=== PATIENT | male | born 1945 | race Caucasian/White ===

== ENCOUNTER 2020-02-22 09:44 | Outpatient (CLI) | payer MEDICARE, SELFPAY ==
[2020-02-22 11:24] LABS: SARS-CoV-2 Ag Negative (Negative)
== END 2020-02-22 09:45 | disposition home or self-care (01) ==
PROVIDERS: PCP Family Medicine; Visit Provider Family Medicine
DX: Z20.828 Contact with and (suspected) exposure to other viral communicable diseases (principal)
CPT/HCPCS: 87426

== ENCOUNTER 2020-02-29 11:22 | Outpatient (CLI) | payer MEDICARE, SELFPAY ==
--- NOTE | ~2020-02-29 | XR_ITS ---
EXAMINATION: XR chest 2V DATE: 02/29/2020 11:39 INDICATION: Chest pain. TECHNIQUE: Frontal and lateral views of the chest were obtained. COMPARISON: Chest single view 11/29/2018 FINDINGS: A calcified right lung nodule is consistent with old granulomatous disease. No pleural effu edwin or pneumothorax. The heart size is normal. IMPRESSION: 1. No acute cardiopulmonary disease. Reviewed, dictated and finalized at location A. STANT FARM OPERATIONS MANAGER
[2020-02-29 11:37] LABS: Basophils Absolute Auto 0.04 K/mm3 (0.00-0.10); Basophils Percent Auto 0.8 % (0.0-1.0); Eosinophils Absolute Auto 0.21 K/mm3 (0.02-0.50); Hemoglobin 13.8 g/dL (12.4-15.3); Immature Granulocyte Absolute 0.02 K/mm3 (0.00-0.00); Immature Granulocyte Percent A 0.4 % (0.0-0.0); Lymphocytes Absolute Auto 1.51 K/mm3 (1.10-4.50); Lymphocytes Percent Auto 28.8 % (18.0-42.0); Mean Corpuscular HGB Conc 32.9 g/dL (32.0-36.0); Mean Corpuscular Volume 97.4 fL (78.0-102.0); Mean Platelet Volume 9.3 fl (8.7-11.0); Monocytes Percent Auto 11.4 % (2.0-11.0); Neutrophils Absolute Auto 2.9 K/mm3 (1.7-7.2); Neutrophils Percent Auto 54.6 % (50.0-70.0); Platelet Count Result 190 K/mm3 (150-420); Red Blood Count 4.31 M/mm3 (4.70-6.10); Red Cell Distribution Width 12.1 % (11.6-14.4); White Blood Count 5.3 K/mm3 (4.8-10.8)
[2020-02-29 12:55] LABS: Alanine Aminotransferase 17 U/L (16-63); Albumin Level 3.6 g/dL (3.4-5.0); Alkaline Phosphatase 85 U/L (46-116); Anion Gap 7 mmol/L (8-16); Aspartate Amino Transferase 10 U/L (15-37); Bilirubin,Total 0.4 mg/dL (0.00-1.00); Blood Urea Nitrogen 24 mg/dL (7-18); Calcium 8.6 mg/dL (8.5-10.1); Carbon Dioxide 28 mmol/L (21-32); Chloride 106 mmol/L (98-108); Creatine Kinase 83 U/L (39-308); Estimated Glomerular Filt Rate 55; Glucose 91 mg/dL (70-99); Osmolality Calculated 296 mOsm/kg (285-295); Potassium 4.8 mmol/L (3.5-5.1); Sodium 141 mmol/L (136-145); Total Protein 7.1 g/dL (6.4-8.2)
[2020-02-29 12:56] LABS: Troponin I < 0.02 ng/mL (0.00-0.056)
== END 2020-02-29 11:23 | disposition home or self-care (01) ==
LOC: CHSLAB 11:23
PROVIDERS: PCP Family Medicine; Visit Provider Family Medicine
DX: R07.9 Chest pain, unspecified (principal)
CPT/HCPCS: 36415; 71046; 80053; 82550; 82553; 84484; 85025

== ENCOUNTER 2020-03-04 10:45 | Outpatient (CLI) | payer MEDICARE, SELFPAY ==
--- NOTE | 2020-03-04 12:00 | EST_ITS ---
Patient Info Name: Santo Abreu Age: 74 years : 1945 Gender: Male Ht: 72 in Wt: 213 lbs BSA: 2.23 m2 HR: 62 bpm BP: 133 / 77 mmHg Heart Rhythm: Sinus Rhythm Technical Quality: Excellent Exam Date: 03/04/2020 11:47 AM Exam Location: [facility] Patient Status: Outpatient Admit Date: 03/04/2020 Staff Ordering Physician: Roldan Arvizu MD Attending Provider: Roldan Arvizu MD Exercise Technologist: Asya Barlow CRT Exercise Physician: Amy Hoover CEP Exam Type: CA stress albert w NM Study Info Indications ChestPain - A nuclear stress test was performed. History/Risk Factors Renal Disease: No Congestive Heart Failure (CHF): No Diabetes Mellitus: No COPD: No Tobacco Use: Former Cerebrovascular Disease: No Deep Vein Thrombosis (DVT): None Dialysis: None History/Risk Factors Patient has no known cardiac history or risk factors. Cardiac Arrest: No Summary 1. 1. Negative Lexiscan stress test for ischemic ST changes by ECG criteria. 2. 2. Stable hemodynamics throughout the test. 3. 3. Nuclear scan to follow and will be reported separately. Please correlate with it. Protocol: LEXISCAN Stress ECG Details Stage: REST Duration (min): 1 min : 10 sec HR (bpm): 62 SBP (mmHg): 130 DBP (mmHg): 77 Stage: REST Duration (min): 13 min : 33 sec HR (bpm): 66 SBP (mmHg): 130 DBP (mmHg): 77 Stage: STAGE 1 Duration (min): 0 min : 8 sec HR (bpm): 64 SBP (mmHg): 130 DBP (mmHg): 77 Stage: RECOVERY Duration (min): 0 min : 52 sec HR (bpm): 88 SBP (mmHg): 130 DBP (mmHg): 77 Stage: RECOVERY Duration (min): 1 min : 52 sec HR (bpm): 88 SBP (mmHg): 131 DBP (mmHg): 72 Stage: RECOVERY Duration (min): 2 min : 52 sec HR (bpm): 89 SBP (mmHg): 136 DBP (mmHg): 72 Stage: RECOVERY Duration (min): 3 min : 52 sec HR (bpm): 81 SBP (mmHg): 131 DBP (mmHg): 67 Stage: RECOVERY Duration (min): 4 min : 52 sec HR (bpm): 84 SBP (mmHg): 135 DBP (mmHg): 68 Stage: RECOVERY Duration (min): 5 min : 52 sec HR (bpm): 83 SBP (mmHg): 130 DBP (mmHg): 72 Stage: RECOVERY Duration (min): 6 min : 1 sec HR (bpm): 77 SBP (mmHg): 130 DBP (mmHg): 72 Rest HR: 66 bpm Peak HR: 95 bpm Rest Sys BP: 130 mmHg Peak Sys BP: 136 mmHg Max Pred HR: 145 bpm % Max Pred HR: 66 % Target HR: 123 bpm Max RPP: 12,920 bpm*mmHg Termination Reason: Completion of Protocol Cardiac Symptoms: Dyspnea Total Time: 0 min : 8 sec Rest Davis BP: 77 mmHg Peak Davis BP: 72 mmHg Total Dose: 0.4 mg Resting ECG Normal sinus rhythm - normal ECG. Stress ECG No ST changes. Arrhythmias None. Report Signatures
== END 2020-03-04 10:46 | disposition home or self-care (01) ==
LOC: CHSIMG 10:46
PROVIDERS: PCP Family Medicine; Visit Provider Family Medicine
DX: R07.9 Chest pain, unspecified (principal)
CPT/HCPCS: 78452; 93017; A9502; J2785

== ENCOUNTER 2020-04-22 09:47 | Emergency (ER) | payer MEDICARE, SELFPAY ==
[2020-04-22] VITALS (16 sets, daily range): BP systolic 137–158; BP diastolic 79–94; PULSE 56–65; RESP 12–19; TEMP 36.4; O2SAT 96–100
--- NOTE | ~2020-04-22 | XR_ITS ---
EXAMINATION: XR chest 2V DATE: 04/22/2020 10:30 INDICATION: Chest pain. TECHNIQUE: Frontal and lateral views of the chest were obtained. COMPARISON: Chest 2 views 02/29/2020 FINDINGS: A calcified right lung nodule is consistent with old granulomatous disease. No pleural effu edwin or pneumothorax. The heart size is normal. IMPRESSION: 1. No acute cardiopulmonary disease. Reviewed, dictated and finalized at location A. P PILER
--- NOTE | 2020-04-22 09:55 | ED.CHESTPAIN ---
HPI - Chest Pain General Chief Complaint: Chest Pain Stated Complaint: Chest Pain Source: patient Mode of arrival: ambulatory Limitations: no limitations History of Present Illness HPI narrative: Patient had left chest discomfort last evening at midnight. He took some aspirin and then went to sleep and the pain went away. He had recurrence of the pain this morning and maybe some radiation down his left arm. He also states he may have imagined the radiation. He denies any nausea vomiting, shortness of breath, diaphoresis, worsening of the pain with exertion. He has a history of hiatal hernia many years ago and is not sure if he is having recurrence of that. He used to be on a PPI has not taken it many years. He did have some omeprazole at home and took 1 of those as well. MD complaint: chest discomfort Pertinent past history: other (Hiatal Hernia) Onset (ago): hour(s) (10) Timing of current episode: episodic Prior episodes: Yes Onset: during rest Pain location: left chest Pain radiation: left arm (Maybe?) Pain scale (0-10): 3 Quality: aching Relieving factors: medication-other (ASA) Exacerbating factors: nothing Treatment prior to arrival: aspirin Risk Factors Coronary artery disease risk factors: none Thoracic aortic dissection risk factors: none Related Data Home Medications Medication Instructions Recorded Confirmed finasteride 5 mg tablet 5 mg PO DAILY 04/18/20 04/22/20 fluticasone propionate 50 1 spray INTRANASAL DAILY 04/18/20 04/22/20 mcg/actuation nasal spray,suspension loratadine 10 mg capsule 10 mg PO DAILY 04/18/20 04/22/20 montelukast 10 mg tablet 10 mg PO DAILY 04/18/20 04/22/20 aspirin [Adult Aspirin] 81 mg PO DAILY 04/22/20 04/22/20 omeprazole magnesium [Acid Offensive Coordinator 20 mg PO DAILY 04/22/20 04/22/20 (omeprazole)] Allergies Allergy/AdvReac Type Severity Reaction Status Date / Time morphine AdvReac Severe NAUSEA Verified 01/23/16 09:25 VOMITING Review of Systems Review of Systems: All systems reviewed & are unremarkable except as noted in HPI and below Cardiovascular: Cardiovascular: Denies irregular heart rhythm, Denies leg edema and Denies dyspnea Gastrointestinal: Gastrointestinal: Denies nausea and Denies vomiting [facility] Past Medical History Medical History Chest pain Chronic rhinitis Elevated prostate specific antigen (PSA) Hemorrhoids Localized edema 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, including shoulder Pain in right leg Pain in shoulder Primary insomnia Surgical History Surgical History History of colonoscopy Social History Social History Smoking status: Former smoker Exam Const: General: cooperative, healthy appearing, comfortable, no acute distress, well developed, alert and awake Nutritional Appearance: average body habitus and well nourished Orientation/consciousness: patient oriented x3 HENMT: Head: normal to inspection Ears: external ears normal General nose exam: Normal external nose present Eyes: General: appearance normal, both eyes and all related structures Neck: Neck: normal visual inspection, full ROM and trachea midline Chest: Chest palpation & inspection: normal inspection of the chest Resp: Effort & Inspection: normal respiratory effort and able to speak in complete sentences Auscultation: clear to auscultation bilaterally Cardio: Rate: regular rate Rhythm: regular rhythm Heart sounds: no murmurs GI: Inspection: normal to inspection GI Palp: Yes Soft to palpation, No Tenderness to palpation present (GI) and No Guarding due to palpation present (GI) Auscultation: normal bowel sounds Back/Spine/Pelvis: Cervical Spine: cervical ROM normal Thoracic/Lumbar Spine: thoraco-lumbar ROM normal Skin: General skin exam: normal color, no rashes or lesions noted and tu
--- NOTE | 2020-04-22 09:56 | ECG_ITS ---
Measurements Intervals [place] Rate: 64 P: 48 NH: 175 QRS: 59 QRSD: 105 T: 64 QT: 408 QTc: 421 Interpretive Statements SINUS RHYTHM EARLY PRECORDIAL R/S TRANSITION BORDERLINE ECG Electronically Signed On 04-22-2020 10:29:54 CATERERS HELPER by Scott Peck D.O.
[2020-04-22 10:13] LABS: Basophils Absolute Auto 0.04 K/mm3 (0.00-0.10); Eosinophils Absolute Auto 0.28 K/mm3 (0.02-0.50); Eosinophils Percent Auto 6.9 % (1.0-6.0); Hematocrit 42.1 % (37.0-46.0); Hemoglobin 14.1 g/dL (12.4-15.3); Immature Granulocyte Absolute 0.01 K/mm3 (0.00-0.00); Immature Granulocyte Percent A 0.2 % (0.0-0.0); Lymphocytes Absolute Auto 1.31 K/mm3 (1.10-4.50); Lymphocytes Percent Auto 32.5 % (18.0-42.0); Mean Corpuscular HGB Conc 33.5 g/dL (32.0-36.0); Mean Corpuscular Hemoglobin 31.8 pg (27.0-31.0); Mean Platelet Volume 9.2 fl (8.7-11.0); Monocytes Absolute Auto 0.48 K/mm3 (0.10-0.90); Monocytes Percent Auto 11.9 % (2.0-11.0); Neutrophils Absolute Auto 1.9 K/mm3 (1.7-7.2); Neutrophils Percent Auto 47.5 % (50.0-70.0); Platelet Count Result 183 K/mm3 (150-420); Red Blood Count 4.43 M/mm3 (4.70-6.10); Red Cell Distribution Width 12.3 % (11.6-14.4)
[2020-04-22 10:30] LABS: Alanine Aminotransferase 16 U/L (16-63); Albumin Level 3.6 g/dL (3.4-5.0); Alkaline Phosphatase 88 U/L (46-116); Anion Gap 7 mmol/L (8-16); Aspartate Amino Transferase 10 U/L (15-37); Bilirubin,Total 0.5 mg/dL (0.00-1.00); Blood Urea Nitrogen 18 mg/dL (7-18); CRP < 0.2 mg/dL (0.0-0.9); Calcium 8.9 mg/dL (8.5-10.1); Carbon Dioxide 27 mmol/L (21-32); Chloride 105 mmol/L (98-108); Estimated CRCL calculation 49 ml/min; Estimated Glomerular Filt Rate 54; Glucose 96 mg/dL (70-99); Magnesium 1.7 mg/dL (1.8-2.4); Osmolality Calculated 289 mOsm/kg (285-295); Potassium 4.3 mmol/L (3.5-5.1); Sodium 139 mmol/L (136-145); Total Protein 7.1 g/dL (6.4-8.2); Troponin I 23.4 ng/L (0.00-60.4)
[2020-04-22 12:24] LABS: Troponin I 26.7 ng/L (0.00-60.4)
== END 2020-04-22 13:23 | disposition home or self-care (01) ==
PROVIDERS: Emergency Provider Emergency Medicine; PCP Family Medicine
DX: R07.89 Other chest pain (principal); Z87.891 Personal history of nicotine dependence
CPT/HCPCS: 36415; 71046; 80053; 83735; 84484; 85025; 86140; 93005; 99283; 99284

== ENCOUNTER 2020-04-23 11:40 | Outpatient (CLI) | payer MEDICARE, SELFPAY ==
--- NOTE | 2020-04-23 11:43 | ECG_ITS ---
Measurements Intervals [place] Rate: 63 P: 47 TN: 158 QRS: 41 QRSD: 103 T: 9 QT: 401 QTc: 410 Interpretive Statements SINUS RHYTHM EARLY PRECORDIAL R/S TRANSITION VOLTAGE CRITERIA FOR LVH MINIMAL Q WAVES- INF/LAT LEADS BORDERLINE ECG Electronically Signed On 04-23-2020 12:16:24 SENIOR PRINCIPAL by Scott Peck D.O.
== END 2020-04-23 11:41 | disposition home or self-care (01) ==
LOC: CHSCARD 11:43
PROVIDERS: PCP Nurse Practitioner Family; Visit Provider Nurse Practitioner Family
DX: Z01.818 Encounter for other preprocedural examination (principal); I10 Essential (primary) hypertension
CPT/HCPCS: 93005

== ENCOUNTER 2020-04-29 07:53 | Outpatient (CLI) | payer MEDICARE, SELFPAY ==
--- NOTE | 2020-04-29 08:00 | ECHO_ITS ---
Patient Info Name: Santo Abreu Age: 74 years : 1945 Gender: Male Ht: 72 in Wt: 213 lbs BSA: 2.23 m2 HR: 75 bpm BP: 125 / 82 mmHg Technical Quality: Poor Exam Date: 04/29/2020 8:03 AM Exam Location: [facility] Patient Status: Outpatient Admit Date: 04/29/2020 Staff Ordering Physician: Mila Tafoya NP Prestidigitator: Angeline Frias RDCS Attending Provider: Mila Tafoya NP Referring Physician: Lottie HUDSON; Exam Type: CA echo dop color flow w con Study Info Indications I24.9 - Acute ischemic heart disease, unspecified Complete two-dimensional, color flow and Doppler transthoracic echocardiogram is performed with contrast to opacify the left ventricle and to improve the deliniation of the left ventricle endocardial borders. Strain analysis performed. Contrast/Agitated Saline Contrast/Ag. Saline: Definity Amount: 3.00 ml New IV Access: Antecubital Space and Left Site Condition: No extravasation, Site dressing applied and IV removed Reason for Poor Study: poor echocardiographic windows History/Risk Factors Hypertension: Yes Dyslipidemia: No Peripheral Arterial Disease (PAD): No Renal Disease: No Congestive Heart Failure (CHF): No Diabetes Mellitus: No COPD: No Tobacco Use: Former Cerebrovascular Disease: No Deep Vein Thrombosis (DVT): None Dialysis: None Frailty Scale (CSHA): 2: Well Cardiac Arrest: No Summary 1. Left ventricular chamber dimension is normal. 2. Definity contrast administered improved wall motion interpretation. 3. Mid lateral wall is hypokinetic. 4. Left ventricular systolic function is normal, estimated at 55-60%. 5. There is mildly increased left ventricular wall thickness. 6. The left ventricular diastolic function is grade I diastolic dysfunction. 7. E/e' 13 is mildly elevated. 8. Global longitudinal strain is abnormal at -12.6%. 9. Left atrial chamber dimension is mildly enlarged. 10. There is mild aortic valve regurgitation. Left Ventricle Definity contrast administered improved wall motion interpretation. E/e' 13 is mildly elevated. Global longitudinal strain is abnormal at -12.6%. Mid lateral wall is hypokinetic. Left ventricular chamber dimension is normal. Left ventricular systolic function is normal, estimated at 55-60%. There is mildly increased left ventricular wall thickness. The left ventricular diastolic function is grade I diastolic dysfunction. Right Ventricle Right ventricular chamber dimension is normal. Right ventricular systolic function is normal. Left Atria Left atrial chamber dimension is mildly enlarged. Right Atria Right atrial chamber dimension is normal. Aortic Valve The aortic valve is trileaflet. There is no aortic valve stenosis. There is mild aortic valve regurgitation. Pulmonic Valve There is no pulmonic regurgitation. Mitral Valve There is no mitral valve stenosis. There is no mitral valve regurgitation. Tricuspid Valve There is no tricuspid valve regurgitation. Pericardium/Pleural There is no pericardial effusion. Inferior Vena Cava Normal inferior vena cava with >50% collapse upon inspiration consistent with normal right atrial pressure, 5 mmHg. Aorta The aortic root size at the sinus of Valsalva is normal. Left Ventricular Outflow Tract
--- NOTE | 2020-05-06 11:32 | WPDHOLTEREM ---
Holter/Event Monitor Holter/Event Monitor Date of procedure: 04/29/20 Procedure Type: 48 hour holter monitor Indications: Ischemic heart disease Conclusion: 1. 48 hour holter monitor on 04/29/20. 2. Underlying rhythm is sinus rhythm. HR range 53-103 bpm; average HR 68 bpm. 3. There are 47 premature supraventricular complexes and 2 supraventricular couplets. No supraventricular tachycardia. 4. There are 5,052 premature ventricular complexes, 225 ventricular couplets, 7 ventricular triplets and 2,337 ventricular trigeminy. No ventricular tachycardia. 5. No sinoatrial or atrioventricular blocks. No significant pauses greater than 2 seconds. 6. Patient reports symptoms of heartburn which demonstrated sinus rhythm, HR range 70-81 bpm with PVC's both times.
== END 2020-04-29 07:54 | disposition home or self-care (01) ==
LOC: CHSIMG 07:55
PROVIDERS: PCP Nurse Practitioner Family; Visit Provider Nurse Practitioner Family
DX: I24.9 Acute ischemic heart disease, unspecified (principal)
CPT/HCPCS: 93225; 93226; C8929

== ENCOUNTER 2020-05-03 12:12 | Outpatient (CLI) | payer MEDICARE, SELFPAY ==
[2020-05-03 13:05] LABS: Cholesterol 226 mg/dL (0-200); HDL Direct 52 mg/dL (40-60); LDL Cholesterol Calculated 150 mg/dL (<130); Triglycerides 122 mg/dL (0-150)
== END 2020-05-03 12:13 | disposition home or self-care (01) ==
LOC: CHSLAB 12:15
PROVIDERS: PCP Nurse Practitioner Family; Visit Provider Internal Medicine Cardiovascular Disease
DX: I10 Essential (primary) hypertension (principal)
CPT/HCPCS: 36415; 80061

== ENCOUNTER 2020-06-06 11:58 | Outpatient (CLI) | payer MEDICARE, SELFPAY ==
--- NOTE | ~2020-06-06 | XR_ITS ---
XR chest 2V DATE: 06/06/2020 12:31 INDICATION: Anterior chest pain. Shortness of breath, cough. TECHNIQUE: 2 views COMPARISON: 04/22/2020 2 view chest FINDINGS: Normal heart size. There is aortic calcification and minimal unfolding. No hilar or mediast inal enlargement. No pulmonary infiltrate or consolidation, pleural effusion or pulmonary vascular congestion or pneumo thorax. There is mild elevation of the left leaf of the diaphragm. Degenerative changes of the thoracic and lumbar spine. IMPRESSION: No active cardiopulmonary disease or significant change since 04/22/2020 Reviewed, dictated and finalized at location A. R PRINT INSPECTOR IMPRESSION: No active cardiopulmonary disease or significant change since 2020
[2020-06-06 12:14] LABS: Hematocrit 40.4 % (37.0-46.0); Hemoglobin 13.4 g/dL (12.4-15.3); Mean Corpuscular HGB Conc 33.2 g/dL (32.0-36.0); Mean Corpuscular Hemoglobin 31.5 pg (27.0-31.0); Mean Corpuscular Volume 94.8 fL (78.0-102.0); Mean Platelet Volume 9.5 fl (8.7-11.0); Platelet Count Result 204 K/mm3 (150-420); Red Blood Count 4.26 M/mm3 (4.70-6.10); Red Cell Distribution Width 12.1 % (11.6-14.4); White Blood Count 5.4 K/mm3 (4.8-10.8)
[2020-06-06 12:31] LABS: Alanine Aminotransferase 19 U/L (16-63); Albumin Level 3.4 g/dL (3.4-5.0); Alkaline Phosphatase 85 U/L (46-116); Anion Gap 8 mmol/L (8-16); Aspartate Amino Transferase 14 U/L (15-37); Bilirubin,Total 0.3 mg/dL (0.00-1.00); Blood Urea Nitrogen 21 mg/dL (7-18); Calcium 9.1 mg/dL (8.5-10.1); Carbon Dioxide 28 mmol/L (21-32); Chloride 103 mmol/L (98-108); Estimated Glomerular Filt Rate 51; Glucose 117 mg/dL (70-99); Osmolality Calculated 292 mOsm/kg (285-295); Potassium 3.9 mmol/L (3.5-5.1); Sodium 139 mmol/L (136-145); Total Protein 6.7 g/dL (6.4-8.2)
[2020-06-06 12:37] LABS: BNP 165 pg/mL (0-100)
== END 2020-06-06 11:59 | disposition home or self-care (01) ==
LOC: CHSLAB 12:01
PROVIDERS: PCP Family Medicine; Visit Provider Family Medicine
DX: R07.9 Chest pain, unspecified (principal); R06.02 Shortness of breath; R06.00 Dyspnea, unspecified
CPT/HCPCS: 36415; 71046; 80053; 83880; 85027

== ENCOUNTER 2020-06-27 13:30 | Outpatient (CLI) | payer MEDICARE, SELFPAY ==
[2020-06-27 15:20] LABS: SARS-CoV-2 RNA PCR Negative
== END 2020-06-27 13:31 | disposition home or self-care (01) ==
LOC: CHSLAB 13:32
PROVIDERS: PCP Nurse Practitioner Family; Visit Provider Nurse Practitioner Family
DX: Z20.822 Contact with and (suspected) exposure to COVID-19 (principal)
CPT/HCPCS: C9803; U0003; U0005

== ENCOUNTER 2020-10-26 07:18 | Outpatient (CLI) | payer MEDICARE, SELFPAY ==
[2020-10-26 08:38] LABS: Alanine Aminotransferase 18 U/L (16-63); Albumin Level 3.6 g/dL (3.4-5.0); Alkaline Phosphatase 84 U/L (46-116); Anion Gap 9 mmol/L (8-16); Bilirubin,Total 0.5 mg/dL (0.00-1.00); Blood Urea Nitrogen 26 mg/dL (7-18); Calcium 8.4 mg/dL (8.5-10.1); Carbon Dioxide 30 mmol/L (21-32); Chloride 105 mmol/L (98-108); Cholesterol 164 mg/dL (0-200); Estimated Glomerular Filt Rate 47; Glucose 103 mg/dL (70-99); HDL Direct 50 mg/dL (40-60); LDL Cholesterol Calculated 99 mg/dL (<130); Osmolality Calculated 302 mOsm/kg (285-295); Potassium 4.2 mmol/L (3.5-5.1); Sodium 144 mmol/L (136-145); Total Protein 6.4 g/dL (6.4-8.2); Triglycerides 73 mg/dL (0-150)
[2020-10-26 08:48] LABS: Aspartate Amino Transferase 10 U/L (15-37)
== END 2020-10-26 07:19 | disposition home or self-care (01) ==
LOC: CHSLAB 07:21
PROVIDERS: PCP Nurse Practitioner Family; Visit Provider Internal Medicine Cardiovascular Disease
DX: E78.5 Hyperlipidemia, unspecified (principal)
CPT/HCPCS: 36415; 80053; 80061

== ENCOUNTER → 2020-11-05 00:39 | Outpatient (CLI) | payer MEDICARE, SELFPAY ==
[2020-11-05 20:36] LABS: SARS-CoV-2 RNA PCR Negative
== END ==
PROVIDERS: PCP Nurse Practitioner Family; Visit Provider Internal Medicine Gastroenterology
DX: Z01.812 Encounter for preprocedural laboratory examination (principal); Z20.822 Contact with and (suspected) exposure to COVID-19
CPT/HCPCS: C9803; U0003; U0005

== ENCOUNTER 2020-11-08 00:51 | Day surgery (SDC) | payer MEDICARE, SELFPAY ==
[2020-10-29 11:08] VITALS: BMI 29.1
[2020-11-08 11:29] VITALS: BP 133/79; PULSE 65; RESP 18; TEMP 36.1; O2SAT 100
[2020-11-08] MEDS: LACTATED RINGERS 1,000 ML 150 ML IV CONT (11:34)
--- NOTE | 2020-11-08 12:11 | P.PNAN_ITS ---
Anes - Initial Pre Proc Eval Procedure: Operation Date: 11/08/20 12:00 Proposed Procedures p Esophagogastroduodenoscopy - Chris Kirkland MD Date/Time: 11/08/20 12:11 Surgeon: Chris Kirkland MD Pre Op Diagnosis: Epigastric Pain Patient Data Age: 75 Gender: M Height: 1.83 m Weight: 96.3 kg Last Vital Signs Temp 97.0 F L 11/08/20 11:29 Pulse 65 11/08/20 11:29 Resp 18 11/08/20 11:29 BP 133/79 11/08/20 11:29 Pulse Ox 100 11/08/20 11:29 Allergies Allergy/AdvReac Type Severity Reaction Status Date / Time morphine AdvReac Severe NAUSEA Verified 11/08/20 11:28 VOMITING Home Medications Medication Instructions Recorded Confirmed Type aspirin 325 mg tablet 325 mg PO DAILY 04/23/20 11/01/20 History omeprazole 40 mg capsule,delayed 40 mg PO DAILY #90 cap 07/15/20 11/01/20 Rx release finasteride 5 mg tablet 5 mg PO DAILY #90 tablet 07/23/20 11/01/20 Rx montelukast 10 mg tablet 10 mg PO DAILY #90 tablet 07/23/20 11/01/20 Rx fluticasone propionate 1 spray INTRANASAL DAILY PRN 10/29/20 11/01/20 History hydrochlorothiazide 12.5 mg tablet See Rx Instructions .ROUTE 11/01/20 11/08/20 Rx .COMPLEX #90 tablet pravastatin 10 mg tablet 10 mg PO DAILY #90 tablet 11/01/20 11/08/20 Rx Patient hx anesthesia problems: none Family hx anesthesia problems: none PMFSH Past Medical History Medical History Chest pain Chronic rhinitis Elevated prostate specific antigen (PSA) Grade I diastolic dysfunction Hemorrhoids Localized edema Mild aortic valve regurgitation 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, including shoulder Overweight (BMI 25.0-29.9) Pain in right leg Pain in shoulder Primary insomnia Surgical History Surgical History H/O elbow surgery H/O shoulder surgery History of colonoscopy S/P nasal surgery Social History Social History Smoking packs per day: 1 Smoking cigarettes per day: 20.0 Years smoked: 10 Smoking pack-years: 10.00 Smoking status: Former smoker Tobacco type: cigarettes Alcohol intake: current Drinks per week: 3 Alcohol use details: DRINKS Substance use: never Substance use type: does not use Living arrangements: with family Additional living arrangements comments: Spiritual care concerns: No Anes - Eval Final PreProcedure Day of Procedure 11/08/20 12:11 Patient weight: overweight Heart: regular rate and rhythm Lungs: clear to auscultation Airway: Mallampati scale class III Neurological: alert and oriented Last oral intake: >/= 8 hours ASA classification: III Emergent: no Anesthetic plan: proceed Anesthesia type and monitoring: general GIVS and standard monitoring Informed Consent: The patient's anesthetic plan and its attendant risks and benefits were discussed with the patient/family/POA. Questions were solicited and answers provided to the satisfaction of the patient/family/POA.
--- NOTE | 2020-11-08 12:13 | WPDGICN ---
Assessment and Plan Assessment and plan (1) Chest pain: Code(s): R07.9 - Chest pain, unspecified Status: Acute Assessment and Plan: Patient with chest pain that is very suspicious for acid reflux. His history is inconsistent however. Coronary artery disease and stress and anxiety cannot be definitively excluded. Plan is for an EGD to assess more thoroughly. Consider cardiology workup at some point. GI Consult Note Consult date/time: 11/08/20 12:13 HPI: Santo Abreu is a 75 year old male Presents for EGD. Patient has a 2 year history of burning substernal chest pain. Patient states symptoms improved with Gaviscon. He has inconsistent improvement with omeprazole. However he does not like taking this medication and often will decrease the dose pontine E asleep. Patient denies any dysphagia or bleeding. He states he eats certain foods with no difficulties. Often symptoms will occur with exercise or work in the yd. Patient has been on omeprazole since at least May of 2020 with inconsistent response. He does note the symptoms tend to worsen with stress. Patient presents today for EGD. Review of Systems Review of Systems: All systems reviewed & are unremarkable except as noted in HPI and below PMFSH Past Medical History Medical History Chest pain Chronic rhinitis Elevated prostate specific antigen (PSA) Grade I diastolic dysfunction Hemorrhoids Localized edema Mild aortic valve regurgitation 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, including shoulder Overweight (BMI 25.0-29.9) Pain in right leg Pain in shoulder Primary insomnia Surgical History Surgical History H/O elbow surgery H/O shoulder surgery History of colonoscopy S/P nasal surgery Social History Social History Smoking packs per day: 1 Smoking cigarettes per day: 20.0 Years smoked: 10 Smoking pack-years: 10.00 Smoking status: Former smoker Tobacco type: cigarettes Alcohol intake: current Drinks per week: 3 Alcohol use details: DRINKS Substance use: never Substance use type: does not use Living arrangements: with family Additional living arrangements comments: Spiritual care concerns: No Meds Home Medications and Allergies Home Medications Medication Instructions Recorded Confirmed Type aspirin 325 mg tablet 325 mg PO DAILY 04/23/20 11/01/20 History omeprazole 40 mg capsule,delayed 40 mg PO DAILY #90 cap 07/15/20 11/01/20 Rx release finasteride 5 mg tablet 5 mg PO DAILY #90 tablet 07/23/20 11/01/20 Rx montelukast 10 mg tablet 10 mg PO DAILY #90 tablet 07/23/20 11/01/20 Rx fluticasone propionate 1 spray INTRANASAL DAILY PRN 10/29/20 11/01/20 History hydrochlorothiazide 12.5 mg tablet See Rx Instructions .ROUTE 11/01/20 11/08/20 Rx .COMPLEX #90 tablet pravastatin 10 mg tablet 10 mg PO DAILY #90 tablet 11/01/20 11/08/20 Rx Allergies Allergy/AdvReac Type Severity Reaction Status Date / Time morphine AdvReac Severe NAUSEA Verified 11/08/20 11:28 VOMITING Vital Signs Vital Signs - 24 hr 11/08/20 11:29 Temperature 97.0 F L Pulse Rate 65 Respiratory Rate 18 Blood Pressure 133/79 Pulse Oximetry 100 Exam Narrative: Physical exam reveals patient be alert. Vital signs stable. HEENT exam is unremarkable. Patient is anicteric. Lungs are clear to auscultation and percussion. Heart is without murmur or extra sounds. Abdominal exam bowel sounds are present soft nontender with no organomegaly. Koul exam deferred at this time.
[2020-11-08 12:55] VITALS: BP 102/55; PULSE 75; RESP 17; O2SAT 98
[2020-11-08 13:05] VITALS: BP 108/68; PULSE 65; RESP 18; O2SAT 98
[2020-11-08 13:15] VITALS: BP 114/71; PULSE 65; RESP 18; O2SAT 98
== END 2020-11-08 13:30 | disposition home or self-care (01) ==
PROVIDERS: PCP Nurse Practitioner Family; Visit Provider Internal Medicine Gastroenterology
PROC: 0DJ08ZZ Inspection of Upper Intestinal Tract, Via Natural or Artificial Opening Endoscopic (ICD-10-PCS; CPT 43235; principal; 2020-11-08 12:00)
DX: R07.89 Other chest pain (principal); R10.13 Epigastric pain; R97.20 Elevated prostate specific antigen [PSA]; I35.1 Nonrheumatic aortic (valve) insufficiency; F17.210 Nicotine dependence, cigarettes, uncomplicated; Z79.82 Long term (current) use of aspirin
CPT/HCPCS: 43239; 87081; C9803; J2704; J7120; U0003; U0005

== ENCOUNTER 2020-12-23 10:29 | Outpatient (CLI) | payer MEDICARE, SELFPAY ==
--- NOTE | ~2020-12-23 | XR_ITS ---
EXAMINATION: XR chest 2V DATE: 12/23/2020 11:23 INDICATION: Cough and fever TECHNIQUE: PA and lateral views of the chest are obtained. COMPARISON: None available FINDINGS: There is subsegmental atelectasis in the left upper lung zone. There is no pleural effusion or pneumothorax. Median sternotomy wires and mediastinal surgical clips are seen, likely from prior coronary artery bypass grafting. The heart size is normal. There is mild thoracic spondylosis. IMPRESSION: 1. No acute cardiopulmonary abnormality. Reviewed, dictated and finalized at location A.
[2020-12-23 12:09] LABS: SARS-CoV-2 RNA PCR Negative (Negative)
== END 2020-12-23 10:30 | disposition home or self-care (01) ==
LOC: CHSLAB 10:36
PROVIDERS: PCP Nurse Practitioner Family
DX: R05 Cough (principal); R50.9 Fever, unspecified; Z20.822 Contact with and (suspected) exposure to COVID-19
CPT/HCPCS: 71046; C9803; U0003; U0005

== ENCOUNTER 2021-01-03 14:28 | Outpatient (CLI) | payer MEDICARE, SELFPAY ==
[2021-01-03 14:42] LABS: Basophils Absolute Auto 0.07 K/mm3 (0.00-0.10); Basophils Percent Auto 1.2 % (0.0-1.0); Eosinophils Absolute Auto 0.39 K/mm3 (0.02-0.50); Eosinophils Percent Auto 6.9 % (1.0-6.0); Hematocrit 37.8 % (37.0-46.0); Hemoglobin 12.3 g/dL (12.4-15.3); Immature Granulocyte Absolute 0.02 K/mm3 (0.00-0.00); Immature Granulocyte Percent A 0.4 % (0.0-0.0); Lymphocytes Absolute Auto 1.41 K/mm3 (1.10-4.50); Mean Corpuscular HGB Conc 32.5 g/dL (32.0-36.0); Mean Corpuscular Hemoglobin 30.9 pg (27.0-31.0); Mean Platelet Volume 8.5 fl (8.7-11.0); Monocytes Absolute Auto 0.61 K/mm3 (0.10-0.90); Monocytes Percent Auto 10.8 % (2.0-11.0); Neutrophils Absolute Auto 3.1 K/mm3 (1.7-7.2); Neutrophils Percent Auto 55.7 % (50.0-70.0); Platelet Count Result 261 K/mm3 (150-420); Red Blood Count 3.98 M/mm3 (4.70-6.10); Red Cell Distribution Width 12.4 % (11.6-14.4); White Blood Count 5.6 K/mm3 (4.8-10.8)
[2021-01-03 15:42] LABS: Alanine Aminotransferase 25 U/L (16-63); Albumin Level 3.4 g/dL (3.4-5.0); Alkaline Phosphatase 92 U/L (46-116); Anion Gap 6 mmol/L (8-16); Aspartate Amino Transferase 12 U/L (15-37); Bilirubin,Total 0.3 mg/dL (0.00-1.00); Blood Urea Nitrogen 22 mg/dL (7-18); Calcium 8.5 mg/dL (8.5-10.1); Carbon Dioxide 30 mmol/L (21-32); Chloride 104 mmol/L (98-108); Estimated Glomerular Filt Rate 52; Glucose 87 mg/dL (70-99); Osmolality Calculated 292 mOsm/kg (285-295); Potassium 4.4 mmol/L (3.5-5.1); Sodium 140 mmol/L (136-145); Total Protein 6.6 g/dL (6.4-8.2)
== END 2021-01-03 14:29 | disposition home or self-care (01) ==
LOC: CHSLAB 14:30
PROVIDERS: PCP Nurse Practitioner Family; Visit Provider Nurse Practitioner Family
DX: I12.9 Hypertensive chronic kidney disease with stage 1 through stage 4 chronic kidney disease, or unspecified chronic kidney disease (principal); N18.30 Chronic kidney disease, stage 3 unspecified
CPT/HCPCS: 36415; 80053; 85025

== ENCOUNTER 2021-03-19 09:30 | Outpatient (RCR) | payer MEDICARE, SELFPAY | END 2021-03-19 14:45 | disposition home or self-care (01) | PROVIDERS: PCP Nurse Practitioner Family; Visit Provider Surgery | DX: Z95.1 Presence of aortocoronary bypass graft (principal) | CPT/HCPCS: 93798 ==

== ENCOUNTER 2021-05-13 12:52 | Emergency (ER) | payer MEDICARE, SELFPAY ==
--- NOTE | ~2021-05-13 | XR_ITS ---
EXAMINATION: XR chest 1V portable DATE: 05/13/2021 15:02 INDICATION: Chills. Nausea. COVID-19 positive. TECHNIQUE: A single frontal view of the chest was obtained. COMPARISON: Chest 2 views 12/23/2020, CT abdomen and pelvis 05/13/2021 FINDINGS: A calcified right lung nodules consistent with old granulomatous disease. There are mild ai rspace opacities in right lower lung zone. There is mild atelectasis in left upper lobe. No pleural e ffusion or pneumothorax. The heart size is normal. Median sternotomy wires and mediastinal surgical c lips are seen, likely from prior coronary artery bypass grafting. IMPRESSION: 1. Mild airspace opacities in right lower lung zone, consistent with COVID-19 pneumonia. Reviewed, dictated and finalized at location A. RACHO TANNER IMPRESSION: 1. Mild airspace opacities in right lower lung zone, consistent with COVID-19 p neumonia.
--- NOTE | ~2021-05-13 | CT_ITS ---
EXAMINATION: CT abdomen pelvis w con EXAM DATE: 05/13/2021 14:59 INDICATION: abd pain, nausea, diarrhea, S/P COVID ON 05/05. TECHNIQUE: Spiral CT of the abdomen and pelvis was performed following intravenous injection of 100 m L Omnipaque 350. Axial, coronal and sagittal images of the abdomen and pelvis were reviewed. The do se-length product (DLP) for this examination was 741.51 mGy-cm. The exposure was tailored according to patient size (auto mA exposure control), and iterative reconstruction (ASIR) was used as additiona l dose reduction technique. There is no prior study for comparison. FINDINGS: The liver, spleen, adrenal glands and pancreas are unremarkable. Gallbladder is unremarkab le. No biliary obstruction. Portal and splenic veins are patent. Kidneys enhance symmetrically. T here is no hydronephrosis. The prostate is unremarkable. The bladder is unremarkable. There is no retroperitoneal or pelvic lymphadenopathy. There is mild scattered arteriosclerotic disease. There are no findings to suggest appendicitis. The stomach and small bowel are unremarkable. There is expected amount of colonic stool. There is moderate sigmoid predominant colonic diverticulosis. T here is no adjacent inflammatory change to suggest diverticulitis. The heart is normal in size. Ther e are no pericardial or pleural effusions. There is small amount of right basilar vague groundglass airspace disease, appearance is consistent with COVID pneumonia. There are no osteoblastic or osteol ytic lesions identified. 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 Sternotomy wires. IMPRESSION: 1. Small amount of right basilar groundglass airspace disease probably COVID pneumonia given appeara nce and history provided. 2. Moderate sigmoid diverticulosis. 3. No acute intra-abdominal findings. Reviewed, dictated and finalized at location G. [employer] IMPRESSION: 1. Small amount of right basilar groundglass airspace disease probably COVID p neumonia given appearance and history provided. 2. Moderate sigmoid diverticulosis. 3. No acute intra-abdominal findings.
[2021-05-13 13:12] VITALS: BP 128/75; PULSE 83; RESP 20; TEMP 36.7; O2SAT 97
[2021-05-13] MEDS: SODIUM CHLORIDE 0.9% IV 1,000 ML 999 ML IV CONT (13:56)
[2021-05-13 13:58] LABS: Basophils Absolute Auto 0.02 K/mm3 (0.00-0.10); Basophils Percent Auto 0.4 % (0.0-1.0); Hematocrit 49.6 % (37.0-46.0); Hemoglobin 16.3 g/dL (12.4-15.3); Immature Granulocyte Absolute 0.02 K/mm3 (0.00-0.00); Immature Granulocyte Percent A 0.4 % (0.0-0.0); Lymphocytes Absolute Auto 0.95 K/mm3 (1.10-4.50); Lymphocytes Percent Auto 17.9 % (18.0-42.0); Mean Corpuscular HGB Conc 32.9 g/dL (32.0-36.0); Mean Corpuscular Hemoglobin 29.9 pg (27.0-31.0); Mean Platelet Volume 9.7 fl (8.7-11.0); Monocytes Absolute Auto 0.55 K/mm3 (0.10-0.90); Monocytes Percent Auto 10.4 % (2.0-11.0); Neutrophils Absolute Auto 3.8 K/mm3 (1.7-7.2); Neutrophils Percent Auto 70.9 % (50.0-70.0); Platelet Count Result 186 K/mm3 (150-420); Red Blood Count 5.45 M/mm3 (4.70-6.10); Red Cell Distribution Width 13.4 % (11.6-14.4); White Blood Count 5.3 K/mm3 (4.8-10.8)
[2021-05-13] MEDS: PANTOPRAZOLE SODIUM IV 40 MG VIAL IV PUSH (13:58)
[2021-05-13] MEDS: ONDANSETRON INJ 4 MG/2 ML VIAL IV PUSH (13:58)
[2021-05-13 13:59] LABS: Add Urine Microscopic? YES; Appearance Urine Clear (Clear); Bilirubin Urine Negative (Negative); Blood Urine Negative (Negative); Color Urine Yellow (Yellow); Glucose Urine UA Negative (Negative); Ketones Urine Negative (Negative); Leukocyte Esterase Ur Negative LEU/UL (Negative); Nitrate Urine Negative (Negative); Protein Urine Trace (Negative); Specific Grav Ur >= 1.030 (1.010-1.020); Urobilinogen Urine 0.2 mg/dL (0.2-1.0)
[2021-05-13 14:03] LABS: Bacteria Urine Trace /hpf; Mucus Urine Moderate /lpf; RBC Urine None seen /hpf (0-2); WBC Urine None seen /hpf (0-3)
[2021-05-13 14:23] LABS: Alanine Aminotransferase 40 U/L (16-63); Albumin Level 3.7 g/dL (3.4-5.0); Alkaline Phosphatase 95 U/L (46-116); Anion Gap 10 mmol/L (8-16); Aspartate Amino Transferase 18 U/L (15-37); Bilirubin,Total 0.4 mg/dL (0.00-1.00); Blood Urea Nitrogen 20 mg/dL (7-18); Carbon Dioxide 28 mmol/L (21-32); Chloride 97 mmol/L (98-108); Estimated CRCL calculation 45 ml/min; Estimated Glomerular Filt Rate 51; Glucose 104 mg/dL (70-99); Lipase 99 U/L (73-393); Osmolality Calculated 282 mOsm/kg (285-295); Sodium 135 mmol/L (136-145); Total Protein 7.8 g/dL (6.4-8.2)
[2021-05-13 16:11] LABS: Base Excess ABG -2.3 mmol/L (0-2); HCO3 ABG 22.1 mmol/L (23-29); Oxygen Content ABG 20.7 %vol (16.0-22.0); Oxygen Saturation ABG 94.8 % (95-97); Oxyhemoglobin 94.4 % (94-100); PO2 ABG 75.1 mmHg (75-85); Total Hemoglobin 15.6 g/dL (12.0-18.0); pH ABG 7.39 (7.35-7.45)
[2021-05-13 16:14] LABS: Device ROOM AIR; Modified Allen's Test Pass; Site Drawn RIGHT RADIAL
--- NOTE | 2021-05-13 16:21 | ED.NAVMDI ---
HPI - Nausea/Vomiting/Diarrhea General Chief complaint: Nausea/Vomiting/Diarrhea Stated complaint: 10 days out from Covid-diarrhea & upset stomach Time Seen by Provider: 05/13/21 12:55 Source: patient and RN notes reviewed Mode of arrival: ambulatory Limitations: no limitations History of Present Illness MD elicited complaint: nausea, vomiting, diarrhea and abdominal pain Onset (ago): day(s) (1) Description of vomiting: food contents and watery Description of diarrhea: watery Associated nausea: Yes Associated abdominal pain: Yes Location of pain: periumbilical Radiation: diffuse Pain consistency: constant Severity: moderate Pain scale (0-10): 6 Quality: cramping, aching and dull Exacerbating factors: none Relieving factors: none Associated symptoms: nausea/vomiting and tenesmus Related Data Home Medications Medication Instructions Recorded Confirmed fluticasone propionate 1 spray INTRANASAL DAILY PRN 10/29/20 05/13/21 aspirin 325 mg tablet 325 mg PO DAILY 01/01/21 05/13/21 finasteride 5 mg PO DAILY 05/13/21 05/13/21 metoprolol tartrate 12.5 mg PO DAILY 05/13/21 05/13/21 montelukast 10 mg PO DAILY 05/13/21 05/13/21 trazodone 50 mg PO QHS PRN 05/13/21 05/13/21 trazodone 100 mg PO HS 05/13/21 05/13/21 Allergies Allergy/AdvReac Type Severity Reaction Status Date / Time morphine AdvReac Severe NAUSEA Verified 05/13/21 13:18 VOMITING Review of Systems Review of Systems: All systems reviewed & are unremarkable except as noted in HPI and below PMFSH Past Medical History Medical History Chest pain Chronic rhinitis Elevated prostate specific antigen (PSA) Grade I diastolic dysfunction Hemorrhoids Hypersomnia Localized edema Mild aortic valve regurgitation 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, including shoulder Overweight (BMI 25.0-29.9) Pain in right leg Pain in shoulder Primary insomnia Surgical History Surgical History H/O elbow surgery H/O shoulder surgery History of colonoscopy History of heart surgery quadruple bypass S/P nasal surgery Social History Social History Smoking packs per day: 1 Smoking cigarettes per day: 20.0 Years smoked: 10 Smoking pack-years: 10.00 Smoking status: Former smoker Tobacco type: cigarettes Alcohol intake: current Drinks per week: 3 Alcohol use details: DRINKS Substance use: never Substance use type: does not use Additional living arrangements comments: Spiritual care concerns: No Exam Const: General: healthy appearing, no acute distress and alert Nutritional Appearance: well nourished Orientation/consciousness: patient oriented x3 Limitations: no limitations HENMT: Head: normal to inspection Ears: external ears normal and TM's normal bilaterally General nose exam: Normal external nose present and Normal nares present Mouth: Yes lip normal and Yes moist mucous membranes Eyes: Cornea: corneas normal Pupils: Equal, round and reactive pupils present EOM: EOMs intact bilaterally Neck: Neck: normal visual inspection Chest: Chest palpation & inspection: normal inspection of the chest Resp: Effort & Inspection: normal respiratory effort Auscultation: crackles Cardio: Rate: regular rate Rhythm: regular rhythm GI: GI Palp: Yes Soft to palpation and Yes Tenderness to palpation present (GI) (minimal LLQ abdominal tenderness.) Auscultation: normal bowel sounds : General: Yes bladder normal to palpation and Yes no CVA tenderness Male General Exam: Yes normal external exam Back/Spine/Pelvis: Back: no CVA tenderness Skin: General skin exam: normal color Neuro: General: patient oriented x3, moves all extremities, no meningeal signs, no focal motor deficits and CN's II-XI intact bilaterally Extrem: General: normal to inspection and
[2021-05-13 16:30] LABS: SARS-CoV-2 Ag Positive (Negative)
[2021-05-13] MEDS: cefTRIAXone 1 GM VIAL (16:45)
[2021-05-13] MEDS: DEXAMETHASONE 4 MG TABLET (16:45)
[2021-05-13] MEDS: UMECLIDINIUM BROMIDE 62.5 MCG ELLIPTA 1 PUFF INHALATION (16:45)
[2021-05-13] MEDS: ALBUTEROL SULFATE (*SP) INHALER 4 PUFF INHALATION (16:45)
[2021-05-13 17:53] VITALS: BP 161/87; PULSE 84; RESP 20; TEMP 36.6; O2SAT 95
[2021-05-13] MEDS: LIDOCAINE HCL 1% LOCAL INJ 20 ML VIAL (17:58)
== END 2021-05-13 17:05 | disposition home or self-care (01) ==
PROVIDERS: Emergency Provider Emergency Medicine; PCP Nurse Practitioner Family
DX: K52.9 Noninfective gastroenteritis and colitis, unspecified (principal); J18.9 Pneumonia, unspecified organism; U07.1 COVID-19; Z87.891 Personal history of nicotine dependence
CPT/HCPCS: 36415; 36600; 71045; 74177; 80053; 81001; 82805; 83690; 85025; 87426; 96361; 96374; 96375; 99284; A9270; C9113; C9803; J0696; J2405; J7030; J8540; Q9967

== ENCOUNTER 2021-09-09 08:26 | Outpatient (CLI) | payer MEDICARE, SELFPAY ==
[2021-09-09 08:43] LABS: Basophils Absolute Auto 0.06 K/mm3 (0.00-0.10); Basophils Percent Auto 1.2 % (0.0-1.0); Eosinophils Absolute Auto 0.23 K/mm3 (0.02-0.50); Eosinophils Percent Auto 4.5 % (1.0-6.0); Hematocrit 43.4 % (37.0-46.0); Immature Granulocyte Absolute 0.01 K/mm3 (0.00-0.00); Immature Granulocyte Percent A 0.2 % (0.0-0.0); Lymphocytes Absolute Auto 1.42 K/mm3 (1.10-4.50); Lymphocytes Percent Auto 27.8 % (18.0-42.0); Mean Corpuscular HGB Conc 32.3 g/dL (32.0-36.0); Mean Corpuscular Hemoglobin 31.5 pg (27.0-31.0); Mean Corpuscular Volume 97.5 fL (78.0-102.0); Mean Platelet Volume 9.4 fl (8.7-11.0); Monocytes Percent Auto 11.8 % (2.0-11.0); Neutrophils Absolute Auto 2.8 K/mm3 (1.7-7.2); Neutrophils Percent Auto 54.5 % (50.0-70.0); Platelet Count Result 196 K/mm3 (150-420); Red Blood Count 4.45 M/mm3 (4.70-6.10); Red Cell Distribution Width 12.3 % (11.6-14.4); White Blood Count 5.1 K/mm3 (4.8-10.8)
[2021-09-09 09:27] LABS: Alanine Aminotransferase 30 U/L (16-63); Albumin Level 3.5 g/dL (3.4-5.0); Alkaline Phosphatase 90 U/L (46-116); Anion Gap 3 mmol/L (8-16); Aspartate Amino Transferase 14 U/L (15-37); Bilirubin,Total 0.5 mg/dL (0.00-1.00); Blood Urea Nitrogen 25 mg/dL (7-18); Calcium 8.7 mg/dL (8.5-10.1); Carbon Dioxide 30 mmol/L (21-32); Chloride 106 mmol/L (98-108); Cholesterol 139 mg/dL (0-200); Creatine Kinase 73 U/L (39-308); Estimated Glomerular Filt Rate 47; Glucose 100 mg/dL (70-99); HDL Direct 68 mg/dL (40-60); LDL Cholesterol Calculated 63 mg/dL (<130); Osmolality Calculated 292 mOsm/kg (285-295); Potassium 4.8 mmol/L (3.5-5.1); Sodium 139 mmol/L (136-145); Thyroid Stimulating Hormone 1.48 uIU/mL (0.36-3.74); Total Protein 6.4 g/dL (6.4-8.2); Triglycerides 42 mg/dL (0-150); Uric Acid 5.3 mg/dL (3.5-7.2)
== END 2021-09-09 08:27 | disposition home or self-care (01) ==
LOC: CHSLAB 08:33
PROVIDERS: PCP Nurse Practitioner Family
DX: I25.10 Atherosclerotic heart disease of native coronary artery without angina pectoris (principal); I12.9 Hypertensive chronic kidney disease with stage 1 through stage 4 chronic kidney disease, or unspecified chronic kidney disease; E78.5 Hyperlipidemia, unspecified; Z95.4 Presence of other heart-valve replacement; N18.2 Chronic kidney disease, stage 2 (mild); K21.9 Gastro-esophageal reflux disease without esophagitis
CPT/HCPCS: 36415; 80053; 80061; 82550; 84443; 84550; 85025

== ENCOUNTER 2022-01-13 11:29 | Outpatient (CLI) | payer MEDICARE, SELFPAY ==
--- NOTE | ~2022-01-13 | XR_ITS ---
XR knee RT 3V 01/13/2022 11:44 Indication: Right knee pain Procedure: 3 views right knee Comparison: No prior studies for comparison. Findings: No fracture, subluxation or dislocation. Mild osteoarthritis. No joint effusion. No foreign bodies. Impression: 1: Mild osteoarthritis of the right knee. Reviewed, dictated and finalized at location A. Impression: 1: Mild osteoarthritis of the right knee.
== END 2022-01-13 11:30 | disposition home or self-care (01) ==
LOC: CHSIMG 11:31
PROVIDERS: PCP Family Medicine; Visit Provider Family Medicine
DX: M25.561 Pain in right knee (principal)
CPT/HCPCS: 73562

== ENCOUNTER 2022-09-01 09:25 | Outpatient (CLI) | payer MEDICARE, SELFPAY ==
--- NOTE | 2022-09-11 17:03 | WPDPFTINT ---
PFT Procedure Performed PFT Procedure Performed Spirometry with Pre/Post Bronchodilator Plethysmography (Lung Vol) Diffusing Cap (DLCO) Flow Vol Loop PFT Interpretation DOS: 09/01/2022 REQUESTING: Huy Nuñez DO REASON FOR TESTING: Shortness of breath PULMONARY FUNCTION TESTS Results are reliable and reproducible. Spirometry: Pre-bronchodilator FEV1 is 2.57 L, 88%. Pre-bronchodilator FVC 3.62 L, 94%. FEV1/ FVC ratio 71%. After bronchodilator administration there is a 2% increase in the FEV1. After bronchodilator there is a 4% decrease in the FVC. The FEV1/ FVC ratio is 75%. These are not statistically significant changes. Lung volumes: Total lung capacity is 6.26 L, 98% predicted, normal. Residual volume 2.58 L, 97%, normal. RV/TLC 41%, normal. Airway resistance 215%. Diffusion: DLCO is 26.7, 124%, elevated. DLCO/ VA is 144%, over corrected for alveolar volume. Flow volume loop: The flow volume loop is normal. IMPRESSION: Normal spirometry, normal lung volumes, elevated diffusion which over corrects for alveolar volume. The main finding on this test is increased diffusion. Isolated increase in diffusion can be seen in asthma, polycythemia, severe obesity, pulmonary hemorrhage, [id number] intra-cardiac shunting, mild left heart failure with increased pulmonary capillary blood volume, increase in cardiac output, and other causes. Clinical correlation is recommended. Evi Higuera MD
== END 2022-09-01 09:26 | disposition home or self-care (01) ==
LOC: CHSCARD 09:26
PROVIDERS: PCP Family Medicine; Visit Provider Family Medicine
DX: R06.02 Shortness of breath (principal)
CPT/HCPCS: 94060; 94726; 94729

== ENCOUNTER 2022-10-29 09:18 | Outpatient (CLI) | payer MEDICARE, SELFPAY ==
[2022-10-29 09:33] LABS: Basophils Absolute Auto 0.04 K/mm3 (0.00-0.10); Basophils Percent Auto 0.9 % (0.0-1.0); Eosinophils Absolute Auto 0.14 K/mm3 (0.02-0.50); Eosinophils Percent Auto 3.2 % (1.0-6.0); Hematocrit 41.6 % (37.0-46.0); Hemoglobin 14.1 g/dL (12.4-15.3); Immature Granulocyte Absolute 0.02 K/mm3 (0.00-0.00); Immature Granulocyte Percent A 0.5 % (0.0-0.0); Lymphocytes Absolute Auto 1.22 K/mm3 (1.10-4.50); Lymphocytes Percent Auto 27.9 % (18.0-42.0); Mean Corpuscular HGB Conc 33.9 g/dL (32.0-36.0); Mean Corpuscular Hemoglobin 32.8 pg (27.0-31.0); Mean Corpuscular Volume 96.7 fL (78.0-102.0); Mean Platelet Volume 9.3 fl (8.7-11.0); Monocytes Absolute Auto 0.45 K/mm3 (0.10-0.90); Monocytes Percent Auto 10.3 % (2.0-11.0); Neutrophils Absolute Auto 2.5 K/mm3 (1.7-7.2); Neutrophils Percent Auto 57.2 % (50.0-70.0); Platelet Count Result 181 K/mm3 (150-420); Red Cell Distribution Width 12.3 % (11.6-14.4); White Blood Count 4.4 K/mm3 (4.8-10.8)
[2022-10-29 10:13] LABS: Alanine Aminotransferase 24 U/L (16-63); Albumin Level 3.5 g/dL (3.4-5.0); Alkaline Phosphatase 84 U/L (46-116); Anion Gap 7 mmol/L (8-16); Aspartate Amino Transferase 14 U/L (15-37); Bilirubin,Total 0.5 mg/dL (0.00-1.00); Blood Urea Nitrogen 20 mg/dL (7-18); Calcium 8.7 mg/dL (8.5-10.1); Carbon Dioxide 28 mmol/L (21-32); Chloride 108 mmol/L (98-108); Cholesterol 153 mg/dL (0-200); Estimated Glomerular Filt Rate 48; Glucose 101 mg/dL (70-99); HDL Direct 64 mg/dL (40-60); LDL Cholesterol Calculated 77 mg/dL (<130); Osmolality Calculated 298 mOsm/kg (285-295); Potassium 4.8 mmol/L (3.5-5.1); Prostate Specific Antigen 5.9 ng/mL (< OR = 4.0); Sodium 143 mmol/L (136-145); Total Protein 6.4 g/dL (6.4-8.2); Triglycerides 62 mg/dL (0-150)
== END 2022-10-29 09:19 | disposition home or self-care (01) ==
LOC: CHSLAB 09:20
PROVIDERS: PCP Family Medicine; Visit Provider Family Medicine
DX: R35.1 Nocturia (principal); I10 Essential (primary) hypertension; Z12.5 Encounter for screening for malignant neoplasm of prostate
CPT/HCPCS: 36415; 80053; 80061; 84153; 85025; G0103

== ENCOUNTER 2022-10-30 12:17 | Outpatient (CLI) | payer MEDICARE, SELFPAY ==
--- NOTE | ~2022-10-30 | CT_ITS ---
EXAMINATION: CT brain & sinus wo con DATE: 10/30/2022 12:36 INDICATION: Chronic sinusitis TECHNIQUE: Computed tomography (CT) of the head and sinuses was performed without intravenous contras t. The mA was adjusted according to patient size. Iterative reconstruction technique was employed. Ex am dose: 756.67 mGy-cm total exam DLP. COMPARISON: 11/29/2017 CT head FINDINGS: Vertebrobasilar and bilateral carotid siphon internal carotid artery calcifications. There is nonspecific diminished attenuation of the cerebral white matter, likely due to chronic small vessel ischemic changes. There is moderate central and cortical cerebral and cerebellar atrophy. No intracranial mass lesion or hemorrhage or cerebrovascular accident, midline shift or mass effect i s noted. No subdural or epidural hematoma. The orbital contents are unremarkable. No fracture or bone destruction of the cranial vault. The mastoid air cells are well-developed and aerated bilaterally. Middle and inner ear apparatus appear normal bilaterally. Right nasal antral windows and resection of right middle nasal turbinate. The frontal sinuses are well-developed and aerated and clear. There is mild patchy soft tissue thickening in the ethmoid air cells bilaterally. Polypoid soft tissue opacities noted along the upper medial wall of each maxillary sinus and there is a small mucus retention cyst at the posterolateral base of the left maxillary sinus. The sphenoid sinuses are normally developed and aerated. There is prominent rightward deviation of the nasal septum. There is prominent asymmetric soft tissue swelling of the left middle and inferior nasal turbinates. There is freeman bullosa of the left middl e nasal turbinate. There is prominent soft tissue thickening at both maxillary ostia, right worse than left. IMPRESSION: Cerebral atherosclerosis and chronic small vessel ischemic changes of cerebral white mat ter No acute intracranial finding Prominent asymmetric soft tissue swelling of the left middle nasal turbinates Freeman bullosa of left middle nasal turbinate Right nasal antral window, resection of right middle nasal turbinate Mild patchy bilateral ethmoid soft tissue thickening Prominent polypoid soft tissue opacities of the upper medial aspect of each proximal a sinus, partial ly occluding the maxillary ostia Reviewed, dictated and finalized at Location A. Reviewed, dictated and finalized at location B. IMPRESSION: Cerebral atherosclerosis and chronic small vessel ischemic changes of cerebral white matter No acute intracranial finding Prominent asymmetric soft tissue swelling of the left middle nasal turbinates Freeman bullosa of left middle nasal turbinate Right nasal antral window, resection of right middle nasal turbinate Mild patchy bilateral ethmoid soft tissue thickening Prominent polypoid soft tissue opacities of the upper medial aspect of each pro ximal a sinus, partially occluding the maxillary ostia
== END 2022-10-30 12:18 | disposition home or self-care (01) ==
LOC: CHSIMG 12:19
PROVIDERS: PCP Family Medicine; Visit Provider Family Medicine
DX: J32.9 Chronic sinusitis, unspecified (principal); I67.2 Cerebral atherosclerosis; J34.89 Other specified disorders of nose and nasal sinuses
CPT/HCPCS: 70450; 70486

== ENCOUNTER 2023-10-26 13:30 | Outpatient (CLI) | payer MEDICARE, SELFPAY ==
--- NOTE | ~2023-10-26 | XR_ITS ---
XR chest 2V Ordering provider: Javi Trinh APRN History: 78 years Male with . SOB, congestion X 6 weeks. Hx of Quad Bypass . Comparison: May 13, 2021 FINDINGS: MEDIASTINUM: The cardiac silhouette is not enlarged. Postoperative changes in the mediastinum. Elevat ion of the left hemidiaphragm. LUNGS: No infiltrates, effusions or pneumothorax. Small nodule in the right upper lobe which is uncha nged from previous examination. OTHER: No free air under the diaphragm. Degenerative changes of the spine. IMPRESSION: No acute cardiopulmonary pathology. Reviewed, dictated and finalized at location A.
== END 2023-10-26 13:31 | disposition home or self-care (01) ==
LOC: CHSIMG 13:32
PROVIDERS: PCP Family Medicine; Visit Provider Nurse Practitioner Family
DX: R06.02 Shortness of breath (principal)
CPT/HCPCS: 71046

== ENCOUNTER 2023-12-02 19:44 | Emergency (ER) | payer MEDICARE, SELFPAY ==
[2023-12-02 19:47] VITALS: BP 142/72; PULSE 77; RESP 18; TEMP 36.2; O2SAT 94
--- NOTE | 2023-12-02 20:22 | ED.WOUNDLAC ---
HPI - Wound/Laceration General Chief Complaint: Wound/Laceration Stated Complaint: wound Time Seen by Provider: 12/02/23 20:00 Source: patient Mode of arrival: ambulatory Limitations: no limitations History of Present Illness HPI narrative: this is a 78-year-old gentleman that presents with wound to his left lower leg with a scab and surrounding erythema with no drainage there is some warmth and mild tenderness. This occurred yesterday after he had hose wrap around his leg causing injury. Currently no fever chills no shortness of breath no chest pain Onset (ago): day(s) Extremity Location: Left: lower leg ( wound with surrounding erythema warmth and tenderness) Place: outdoors Patient tetanus UTD: Yes Context: accidental Associated symptoms: pain Related Data Home Medications Medication Instructions Recorded Confirmed aspirin 325 mg tablet 325 mg PO DAILY 01/01/21 11/17/23 Allergies Allergy/AdvReac Type Severity Reaction Status Date / Time morphine AdvReac Severe NAUSEA Verified 11/17/23 07:37 VOMITING Review of Systems Review of Systems: All systems reviewed & are unremarkable except as noted in HPI and below PMFSH Past Medical History Medical History Bypass graft stenosis Chest pain Chronic rhinitis Elevated prostate specific antigen (PSA) Grade I diastolic dysfunction Hemorrhoids Hypersomnia Knee pain Localized edema Mild aortic valve regurgitation 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, including shoulder Overweight (BMI 25.0-29.9) Pain in right leg Pain in shoulder Primary insomnia Surgical History Surgical History H/O elbow surgery H/O shoulder surgery History of colonoscopy History of heart surgery quadruple bypass S/P nasal surgery Social History Social History Smoking packs per day: 1 Smoking cigarettes per day: 20.0 Years smoked: 10 Smoking pack-years: 10.00 Smoking status: Former smoker Tobacco type: cigarettes Alcohol intake: current Drinks per week: 3 Alcohol use details: DRINKS Substance use: never Substance use type: does not use Living arrangements: with family Additional living arrangements comments: Occupation/Education: retired Spiritual care concerns: No Exam Const: General: healthy appearing, no acute distress and alert Nutritional Appearance: well nourished Orientation/consciousness: patient oriented x3 Limitations: no limitations Resp: Effort & Inspection: normal respiratory effort Auscultation: clear to auscultation bilaterally Cardio: Rate: regular rate Rhythm: regular rhythm GI: GI Palp: Yes Soft to palpation Skin: Wounds: wounds noted Other: area of erythema with a a scab left lower extremity with surrounding erythema warmth and tenderness and no drainage Neuro: General: patient oriented x3 and moves all extremities Course Course Emergency Course: we will apply triple antibiotic ointment to wound and administer a dose of p.o. Augmentin patient is up-to-date with his tetanus. Vital Signs Vital signs: Vital Signs Temperature 36.2 C L 12/02/23 19:47 Pulse Rate 77 12/02/23 19:47 Respiratory Rate 18 12/02/23 19:47 Blood Pressure 142/72 H 12/02/23 19:47 Pulse Oximetry 94 12/02/23 19:47 Oxygen Delivery Room Air 12/02/23 19:47 Temperature 36.2 C L 12/02/23 19:47 Pulse Rate 77 12/02/23 19:47 Respiratory Rate 18 12/02/23 19:47 Blood Pressure 142/72 H 12/02/23 19:47 Pulse Oximetry 94 12/02/23 19:47 Oxygen Delivery Room Air 12/02/23 19:47 Critical Care Time Critical Care Time Critical Care Time: No Discharge Plan Discharge Clinical Impression: Cellulitis and abscess of left leg Patient Disposition: Home, Self-Care Condition: Stable Instructions: Antibiotic Fo
[2023-12-02] MEDS: AMOXICILLIN/CLAVULANATE K 875-125 MG TAB 1 TABLET PO (20:42)
[2023-12-02] MEDS: NEOMYCIN/POLYMYXIN/BACITRACIN OINTMENT PACKET 1 PACKET TOPICAL (20:43)
== END 2023-12-02 20:48 | disposition home or self-care (01) ==
LOC: CHSED 20:28
PROVIDERS: Emergency Provider Emergency Medicine; PCP Family Medicine
DX: L03.116 Cellulitis of left lower limb (principal); L02.416 Cutaneous abscess of left lower limb; Z87.891 Personal history of nicotine dependence
CPT/HCPCS: 99283; A9270

== ENCOUNTER 2024-03-11 22:23 | Emergency (ER) | payer MEDICARE, SELFPAY ==
[2024-03-11 22:29] VITALS: BP 151/84; PULSE 73; RESP 15; TEMP 36.5; O2SAT 97
--- NOTE | 2024-03-11 22:33 | ED_ITS ---
HPI - Skin/Abscess/Foreign Bdy General Chief complaint: Skin/Abscess/Foreign Body Stated complaint: R Upper Outer Thigh Rash Time Seen by Provider: 03/11/24 22:24 Source: patient Mode of arrival: ambulatory Limitations: no limitations History of Present Illness HPI narrative: Patient is a 78-year-old male with a significant past medical history that presents today for possible shingles. Patient has a rash on his right lower extremity on the lateral side. He says that it started today it was not that many before his shower and that we have the shower about 15 minutes later it. Pretty quickly. It seemed to spread pretty fast as well. He says he says it is painful in that area. He has never had shingles in the past. He did not receive his shingles vaccination. complaint: rash Onset (ago): hour(s) Tetanus up to date: yes Location: RLE Severity: moderate Severity scale (1-10): 4 Quality: burning and stabbing Pain Consistency: constant Relieving factors: none Exacerbating factors: none Context: none Associated symptoms: denies other symptoms Treatments prior to arrival: none Related Data Home Medications Medication Instructions Recorded Confirmed aspirin 325 mg tablet 325 mg PO DAILY 01/01/21 12/02/23 Allergies Allergy/AdvReac Type Severity Reaction Status Date / Time morphine AdvReac Severe NAUSEA Verified 12/02/23 20:37 VOMITING Review of Systems Review of Systems: All systems reviewed & are unremarkable except as noted in HPI and below Constitutional: Constitutional: Reports as per HPI Eyes: Eyes: Reports no additional eye complaints ENT: Reports system reviewed and no additional complaints, except as documented Cardiovascular: Cardiovascular: Reports no additional cardiovascular complaints Respiratory: Respiratory: Reports no additional respiratory complaints Gastrointestinal: Gastrointestinal: Reports no additional gastrointestinal complaints Musculoskeletal: Musculoskeletal: Reports no additional musculoskeletal complaints Integumentary/Breasts: Skin/Breast: Reports as per HPI, Reports pruritus, Reports erythema and Reports rash Neurologic: Reports as per HPI Psychiatric: Psychiatric: Reports no additional psychiatric complaints Endocrine: Endocrine: Reports no additional endocrine complaints Hematologic/Lymphatic: Hematologic/Lymphatic: Reports no additional hematolog ic/lymphatic complaints Allergic/Immunologic: Allergic/Immunologic: Reports no additional allergic/immunologic complaints PMFSH Past Medical History Medical History Bypass graft stenosis Chest pain Chronic rhinitis Elevated prostate specific antigen (PSA) Grade I diastolic dysfunction Hemorrhoids Hypersomnia Knee pain Localized edema Mild aortic valve regurgitation 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, including shoulder Overweight (BMI 25.0-29.9) Pain in right leg Pain in shoulder Primary insomnia Surgical History Surgical History H/O elbow surgery H/O shoulder surgery History of colonoscopy History of heart surgery quadruple bypass S/P nasal surgery Social History Social History Smoking packs per day: 1 Smoking cigarettes per day: 20.0 Years smoked: 10 Smoking pack-years: 10.00 Smoking status: Former smoker Tobacco type: cigarettes Alcohol intake: current Drinks per week: 3 Alcohol use details: DRINKS Substance use: never Substance use type: does not use Living arrangements: with family Additional living arrangements comments: Occupation/Education: retired Spiritual care concerns: No Exam Const: General: healthy appearing, no acute distress and alert HENMT: Head: normal to inspection Ears: external ears normal Face/Nose/Sinus: Normal external nose present Face and sinus: normal facial exam Eyes: Conjunctivae: conjunctivae normal Pupils: Equal, round and reactive pupils present EOM: EOMs intact bilaterally Neck: Neck: normal visual inspection Chest: Chest palpation & inspection: normal inspection of the chest Resp: Effort & Inspection: normal respiratory effort Auscultation: clear to auscultation bilaterally Cardio: Rate: regular rate Rhythm: regular rhythm GI: Auscultation: normal bowel sounds Back/Spine/Pelvis: Back: no CVA tenderness Skin: General skin exam: normal color Other: Macular papular rash lateral portion of lower extremity and dermatomal pattern looks like shingles Neuro: General: patient oriented x3, moves all extremities and no meningeal signs Extrem: General: normal to inspection and no clubbing, cyanosis or edema Psych: Mental Status: mental status grossly normal Course Vital Signs Vital signs: Vital Signs Temperature 97.7 F 03/11/24 22:29 Pulse Rate 73 03/11/24 22:29 Respiratory Rate 15 03/11/24 22:29 Blood Pressure 151/84 H 03/11/24 22:29 Pulse Oximetry 97 03/11/24 22:29 Oxygen Delivery Room Air 03/11/24 22:29 Temperature 97.7 F 03/11/24 22:29 Pulse Rate 73 03/11/24 22:29 Respiratory Rate 15 03/11/24 22:29 Blood Pressure 151/84 H 03/11/24 22:29 Pulse Oximetry 97 03/11/24 22:29 Oxygen Delivery Room Air 03/11/24 22:29 MDM - Skin/Abscess/Foreign Bdy MDM Narrative Medical decision making narrative: patient definitely has shingles they followed dermatomal pattern her macular papular rash and he has ever had before does not have shingles vaccination. Will treat with Valtrex and started on his 1st dosage of 1 g today. Will send in the rest of his medication to his pharmacy to complete the course. He would also like some cream that will help with the pain. Differential Diagnosis Differential diagnosis: Likely other ( Shingles) Medical Records Attestation: I reviewed the patient's medical records. Lab Data Attestation: I reviewed the patient's lab results. Discharge Plan Discharge Clinical Impression: Shingles Patient Disposition: Home, Self-Care Condition: Stable Instructions: Antibiotic Form, Shingles (ED) Prescriptions: New valacyclovir [Valtrex] 500 mg tablet 500 mg PO Q12H Qty: 14 1RF No Action amoxicillin-pot clavulanate [Augmentin] 500-125 mg tablet 1 tablet PO TID Qty: 30 0RF mupirocin 2 % ointment 1 applic topical TID 7 Days Qty: 15 0RF Rx Instructions: apply to left lower leg at affected areas aspirin 325 mg tablet 325 mg PO DAILY dutasteride 0.5 mg capsule See Rx Instructions .ROUTE .COMPLEX Qty: 90 3RF Dose Instruction: TAKE 1 CAPSULE BY MOUTH DAILY Rx Instructions: TAKE 1 CAPSULE BY MOUTH DAILY metoprolol tartrate 25 mg tablet See Rx Instructions .ROUTE .COMPLEX Qty: 90 3RF Dose Instruction: TAKE ONE-HALF TABLET BY MOUTH TWICE DAILY Rx Instructions: TAKE ONE-HALF TABLET BY MOUTH TWICE DAILY rosuvastatin 20 mg tablet See Rx Instructions .ROUTE .COMPLEX Qty: 90 3RF Dose Instruction: TAKE 1 TABLET BY MOUTH DAILY Rx Instructions: TAKE 1 TABLET BY MOUTH DAILY albuterol sulfate 90 mcg/actuation HFA aerosol inhaler 1 inh inhalation Q4H PRN (Reason: shortness of breath or wheezing) Qty: 8.5 0RF budesonide-formoterol [Symbicort] 160-4.5 mcg/actuation HFA aerosol inhaler 2 puff inhalation Q12H Qty: 10.2 0RF montelukast 10 mg tablet See Rx Instructions .ROUTE .COMPLEX Qty: 90 3RF Dose Instruction: TAKE 1 TABLET BY MOUTH DAILY Rx Instructions: TAKE 1 TABLET BY MOUTH DAILY fluticasone propionate 50 mcg/actuation spray,suspension See Rx Instructions .ROUTE .COMPLEX Qty: 16 0RF Dose Instruction: USE ONE SPRAY IN EACH NOSTRIL DAILY NEEDED Rx Instructions: USE ONE SPRAY IN EACH NOSTRIL DAILY NEEDED Follow-up/Referrals: Huy Nuñez DO [Primary Care Provider] - Time of Disposition: 22:45
[2024-03-11] MEDS: valACYclovir HCL 500 MG TABLET 1000 MG PO (22:40)
--- NOTE | 2024-03-11 22:59 | ED.SKABFB ---
HPI - Skin/Abscess/Foreign Bdy General Chief complaint: Skin/Abscess/Foreign Body Stated complaint: R Upper Outer Thigh Rash Time Seen by Provider: 03/11/24 22:24 Source: patient Mode of arrival: ambulatory Limitations: no limitations History of Present Illness complaint: rash Location: RLE Severity: moderate Relieving factors: none Exacerbating factors: none Associated symptoms: denies other symptoms Related Data Home Medications Medication Instructions Recorded Confirmed aspirin 325 mg tablet 325 mg PO DAILY 01/01/21 12/02/23 Allergies Allergy/AdvReac Type Severity Reaction Status Date / Time morphine AdvReac Severe NAUSEA Verified 12/02/23 20:37 VOMITING Review of Systems Review of Systems: All systems reviewed & are unremarkable except as noted in HPI and below Constitutional: Constitutional: Reports no additional constitutional complaints Eyes: Eyes: Reports no additional eye complaints ENT: Reports system reviewed and no additional complaints, except as documented Cardiovascular: Cardiovascular: Reports no additional cardiovascular complaints Respiratory: Respiratory: Reports no additional respiratory complaints Gastrointestinal: Gastrointestinal: Reports no additional gastrointestinal complaints Genitourinary: Genitourinary: Reports no additional male genitourinary complaints Musculoskeletal: Musculoskeletal: Reports no additional musculoskeletal complaints Integumentary/Breasts: Skin/Breast: Reports as per HPI, Reports pruritus, Reports erythema and Reports rash Neurologic: Reports system reviewed and no additional complaints, except as documented Psychiatric: Psychiatric: Reports no additional psychiatric complaints Endocrine: Endocrine: Reports no additional endocrine complaints Hematologic/Lymphatic: Hematologic/Lymphatic: Reports no additional hematologic/lymphatic complaints Allergic/Immunologic: Allergic/Immunologic: Reports no additional allergic/immunologic complaints [facility] Past Medical History Medical History Bypass graft stenosis Chest pain Chronic rhinitis Elevated prostate specific antigen (PSA) Grade I diastolic dysfunction Hemorrhoids Hypersomnia Knee pain Localized edema Mild aortic valve regurgitation 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, including shoulder Overweight (BMI 25.0-29.9) Pain in right leg Pain in shoulder Primary insomnia Surgical History Surgical History H/O elbow surgery H/O shoulder surgery History of colonoscopy History of heart surgery quadruple bypass S/P nasal surgery Social History Social History Smoking packs per day: 1 Smoking cigarettes per day: 20.0 Years smoked: 10 Smoking pack-years: 10.00 Smoking status: Former smoker Tobacco type: cigarettes Alcohol intake: current Drinks per week: 3 Alcohol use details: DRINKS Substance use: never Substance use type: does not use Living arrangements: with family Additional living arrangements comments: Occupation/Education: retired Spiritual care concerns: No Exam Const: General: healthy appearing Nutritional Appearance: well nourished Orientation/consciousness: patient oriented x3 HENMT: Head: normal to inspection Ears: external ears normal Face/Nose/Sinus: Normal external nose present Face and sinus: normal facial exam Eyes: Conjunctivae: conjunctivae normal Pupils: Equal, round and reactive pupils present EOM: EOMs intact bilaterally Neck: Neck: normal visual inspection Chest: Chest palpation & inspection: normal inspection of the chest Resp: Effort & Inspection: normal respiratory effort Cardio: Rate: regular rate Rhythm: regular rhythm GI: Auscultation: normal bowel sounds Back/Spine/Pelvis: Back: no CVA tenderness Skin: General skin exam: normal color Rashes: no rashes ( High-fiber rash on lateral side of right leg, shingles) Wounds: no wounds Neuro: General: patient oriented x3 Cranial nerves: Yes Nystagmus not present Speech: normal speech Extrem: General: normal to inspection Psych: Mental Status: mental status grossly normal Affect: normal affect Attitude: cooperative Course Vital Signs Vital signs: Vital Signs Temperature 97.7 F 03/11/24 22:29 Pulse Rate 73 03/11/24 22:29 Respiratory Rate 15 03/11/24 22:29 Blood Pressure 151/84 H 03/11/24 22:29 Pulse Oximetry 97 03/11/24 22:29 Oxygen Delivery Room Air 03/11/24 22:29 Temperature 97.7 F 03/11/24 22:29 Pulse Rate 73 03/11/24 22:29 Respiratory Rate 15 03/11/24 22:29 Blood Pressure 151/84 H 03/11/24 22:29 Pulse Oximetry 97 03/11/24 22:29 Oxygen Delivery Room Air 03/11/24 22:29 MDM - Skin/Abscess/Foreign Bdy MDM Narrative Medical decision making narrative: patient has a maculopapular rash on the right lower extremity the lateral side resembles that of shingles and follows a dermatomal pattern. Will give him Valtrex for this 1 g today and will set the rest home to his pharmacy. He him instructions on taking this and to ensure he does not touch the this and keep his hands very clean. Explained him he is contagious until it crusts over still did not touch the area. Differential Diagnosis Differential diagnosis: Likely other ( shingles) Medical Records Attestation: I reviewed the patient's medical records. Lab Data Attestation: I reviewed the patient's lab results. Discharge Plan Discharge Clinical Impression: Shingles Patient Disposition: Home, Self-Care Condition: Stable Instructions: Antibiotic Form, Shingles (ED) Prescriptions: New valacyclovir [Valtrex] 500 mg tablet 500 mg PO Q12H Qty: 14 1RF No Action amoxicillin-pot clavulanate [Augmentin] 500-125 mg tablet 1 tablet PO TID Qty: 30 0RF mupirocin 2 % ointment 1 applic topical TID 7 Days Qty: 15 0RF Rx Instructions: apply to left lower leg at affected areas aspirin 325 mg tablet 325 mg PO DAILY dutasteride 0.5 mg capsule See Rx Instructions .ROUTE .COMPLEX Qty: 90 3RF Dose Instruction: TAKE 1 CAPSULE BY MOUTH DAILY Rx Instructions: TAKE 1 CAPSULE BY MOUTH DAILY metoprolol tartrate 25 mg tablet See Rx Instructions .ROUTE .COMPLEX Qty: 90 3RF Dose Instruction: TAKE ONE-HALF TABLET BY MOUTH TWICE DAILY Rx Instructions: TAKE ONE-HALF TABLET BY MOUTH TWICE DAILY rosuvastatin 20 mg tablet See Rx Instructions .ROUTE .COMPLEX Qty: 90 3RF Dose Instruction: TAKE 1 TABLET BY MOUTH DAILY Rx Instructions: TAKE 1 TABLET BY MOUTH DAILY albuterol sulfate 90 mcg/actuation HFA aerosol inhaler 1 inh inhalation Q4H PRN (Reason: shortness of breath or wheezing) Qty: 8.5 0RF budesonide-formoterol [Symbicort] 160-4.5 mcg/actuation HFA aerosol inhaler 2 puff inhalation Q12H Qty: 10.2 0RF montelukast 10 mg tablet See Rx Instructions .ROUTE .COMPLEX Qty: 90 3RF Dose Instruction: TAKE 1 TABLET BY MOUTH DAILY Rx Instructions: TAKE 1 TABLET BY MOUTH DAILY fluticasone propionate 50 mcg/actuation spray,suspension See Rx Instructions .ROUTE .COMPLEX Qty: 16 0RF Dose Instruction: USE ONE SPRAY IN EACH NOSTRIL DAILY NEEDED Rx Instructions: USE ONE SPRAY IN EACH NOSTRIL DAILY NEEDED Follow-up/Referrals: Huy Nuñez DO [Primary Care Provider] - Time of Disposition: 22:45
[2024-03-11 23:09] VITALS: BP 140/79; PULSE 74; RESP 18; O2SAT 98
== END 2024-03-11 23:09 | disposition home or self-care (01) ==
PROVIDERS: Emergency Provider Family Medicine; PCP Family Medicine
DX: B02.9 Zoster without complications (principal); Z87.891 Personal history of nicotine dependence
CPT/HCPCS: 99283; A9270

== ENCOUNTER 2024-12-18 10:51 | Outpatient (NON) | payer MEDICARE, SELFPAY ==
[2024-12-18 11:11] LABS: Add Urine Microscopic? NO; Appearance Urine Clear (Clear); Glucose Urine UA Negative (Negative); Leukocyte Esterase Ur Negative LEU/UL (Negative); Nitrate Urine Negative (Negative); Specific Grav Ur 1.020 (1.010-1.020)
== END 2024-12-18 10:52 | disposition home or self-care (01) ==
LOC: CHSLAB 10:52
PROVIDERS: PCP Family Medicine; Visit Provider Nurse Practitioner Family
DX: R39.9 Unspecified symptoms and signs involving the genitourinary system (principal)
CPT/HCPCS: 81003

== ENCOUNTER 2025-01-10 07:28 | Outpatient (CLI) | payer MEDICARE, SELFPAY ==
--- OUTSIDE RECORDS SUMMARY | 2025-01-10 07:30 | XMS_ITS | Clinical Summary ---
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 Gender Identity Not on file Sexual Orientation Not on file Plan of Treatment Health Maintenance Due Date Last Done Comments DTaP, Tdap and Td Vaccines ( 1 - Tdap) [birth year]02/1964 Pneumococcal Vaccine: 50+ Ye ars (1 of 1 - PCV) 1994 Zoster Vaccines (1 of 2) 1994 RSV Immunization or 60+ Years (1 - 1-dose 75+ series) 07/02/2019 COVID-19 Vaccine ( - 2023-2 5 season) 2024 Meningococcal B Vaccine Aged Out No l onger eligible based on patient's age to complete this topic Meningococcal Vaccine Aged Out No glory marivel eligible based on patient's age to complete this topic RSV Immunizations Under 20 Months Aged Out No longer eligible based on patient's age to complete this topic
[2025-01-10 08:50] LABS: Prostate Specific Antigen 4.5 ng/mL (< OR = 4.0)
== END 2025-01-10 07:29 | disposition home or self-care (01) ==
LOC: CHSLAB 07:29
PROVIDERS: PCP Family Medicine; Visit Provider Family Medicine
DX: Z12.5 Encounter for screening for malignant neoplasm of prostate (principal)
CPT/HCPCS: 36415; 84153; G0103

== ENCOUNTER 2025-01-23 07:12 | Outpatient (CLI) | payer MEDICARE, SELFPAY ==
--- OUTSIDE RECORDS SUMMARY | 2025-01-23 07:15 | XMS_ITS | Clinical Summary ---
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
[2025-01-26 11:09] LABS: Free Testosterone (Direct) 6.8 pg/mL (6.6-18.1)
== END 2025-01-23 07:13 | disposition home or self-care (01) ==
LOC: CHSLAB 07:13
PROVIDERS: PCP Family Medicine; Visit Provider Family Medicine
DX: N52.9 Male erectile dysfunction, unspecified (principal)
CPT/HCPCS: 84402; 84403

== ENCOUNTER 2025-03-30 09:44 | Outpatient (CLI) | payer MEDICARE, SELFPAY ==
[2025-03-30 10:00] LABS: Hematocrit 42.5 % (37.0-46.0); Hemoglobin 13.6 g/dL (12.4-15.3); Immature Granulocyte Percent A 0.2 % (0.0-0.0); Lymphocytes Absolute Auto 1.44 K/mm3 (1.10-4.50); Mean Corpuscular HGB Conc 32.0 g/dL (32-36); Mean Corpuscular Hemoglobin 30.7 pg (27.0-31.0); Mean Corpuscular Volume 95.9 fL (78.0-102.0); Nucleated Red Blood Cells Absolute Auto 0.00 K/mm3 (0.00-0.00); Nucleated Red Blood Cells Perc 0.0 % (0-0.0); Platelet Count Result 174 K/mm3 (150-420); Red Blood Count 4.43 M/mm3 (4.70-6.10); White Blood Count 5.3 K/mm3 (4.8-10.8)
[2025-03-30 10:02] LABS: Add Urine Microscopic? NO; Appearance Urine Clear (Clear); Glucose Urine UA Negative (Negative); Leukocyte Esterase Ur Negative LEU/UL (Negative); Nitrate Urine Negative (Negative); Specific Grav Ur 1.020 (1.010-1.020)
--- OUTSIDE RECORDS SUMMARY | 2025-03-30 10:06 | XMS_ITS | Clinical Summary ---
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 Gender Identity Not on file Sexual Orientation Not on file Plan of Treatment Health Maintenance Due Date Last Done Comments DTaP, Tdap and Td Vaccines ( 1 - Tdap) [birth year]02/1964 Pneumococcal Vaccine: 50+ Ye ars (1 of 1 - PCV) 1994 Zoster Vaccines (1 of 2) 1994 RSV Immunization or 60+ Years (1 - 1-dose 75+ series) 07/02/2019 COVID-19 Vaccine ( - 2024-2 6 season) 2024 Influenza Adult (#1) 2025 Hepatitis A Vaccines Aged Out No long er eligible based on patient's age to complete this topic Meningococcal B Vaccine Aged Out No l onger eligible based on patient's age to complete this topic Meningococcal Vaccine Aged Out No glory marivel eligible based on patient's age to complete this topic RSV Immunizations Under 20 Months Aged Out No longer eligible based on patient's age to complete this topic
[2025-03-30 10:56] LABS: Prostate Specific Antigen 4.5 ng/mL (< OR = 4.0)
== END 2025-03-30 09:45 | disposition home or self-care (01) ==
PROVIDERS: PCP Family Medicine; Visit Provider Family Medicine
DX: R31.9 Hematuria, unspecified (principal); N40.1 Benign prostatic hyperplasia with lower urinary tract symptoms; R35.1 Nocturia; R39.9 Unspecified symptoms and signs involving the genitourinary system; Z12.5 Encounter for screening for malignant neoplasm of prostate
CPT/HCPCS: 36415; 81003; 84153; 85025; G0103